=== PATIENT | male | born 2005 | race African-American/Black ===

== ENCOUNTER 2024-07-23 09:59 | Emergency (ER) | payer OTHER, SELFPAY ==
--- NOTE | ~2024-07-23 | XR_ITS ---
EXAMINATION: XR HAND/WRIST, RIGHT CLINICAL INFORMATION: Pain following a punching injury. COMPARISON: None available. TECHNIQUE: PA, oblique, lateral, and scaphoid views of the right hand and wrist. FINDINGS: No fracture or dislocation. Normal carpal alignment. No significant joint space narrowing or marginal osteophytes. No osseous erosion. No periarticular osteopenia. No abnormal soft tissue calcification. XR/XR hand wrist RT IMPRESSION: No acute osseous abnormality. Electronically signed by: Aric Jeronimo MD 07/23/2024 01:49 PM EDT
[2024-07-23 10:01] VITALS: BP 120/64; PULSE 95; RESP 16; TEMP 36.4; O2SAT 98; BMI 34.8
--- NOTE | 2024-07-23 11:09 | ED_ITS ---
HPI - Extremity Problem General Chief complaint: Extremity Injury, Upper Stated complaint: Hand injury Time Seen by Provider: 07/23/24 11:08 Source: patient Mode of arrival: ambulatory Limitations: no limitations History of Present Illness ED Provider: mally WALKER Narrative: Patient is a 19-year old right hand dominant male presenting to the ED with complaint of right hand and wrist pain. States that he was upset last night and punched a dumpster. Denies numbess or tingling, decreased ROM. Onset (ago): hour(s) Location: right Associated symptoms: denies other symptoms Related Data Allergies Allergy/AdvReac Type Severity Reaction Status Date / Time No Known Allergies Allergy Verified 07/23/24 10:06 Review of Systems Review of Systems: As per HPI. Yes all other systems are reviewed and are negative Constitutional: Constitutional: Reports as per HPI [facility] Social History Social History Advance Directives: No Advance Directives Information Provided: Yes Do you have a plan to hurt others: No Plan Physical Exam Vital Signs: Vital Signs: Last Vital Signs Temp 97.5 F 07/23/24 10:01 Pulse 95 07/23/24 10:01 Resp 16 07/23/24 10:01 BP 120/64 07/23/24 10:01 Pulse Ox 98 07/23/24 10:01 O2 Del Method Room Air 07/23/24 10:01 BMI result Body Mass Index 34.8 Vital signs have been reviewed and appear to be correct. Blood pressure normal. Heart rate normal. Respiratory rate normal. Temperature normal. Oxygen saturation normal. Const: General: cooperative, healthy appearing and no acute distress Orientation/consciousness: oriented to person, oriented to place, oriented to time and patient oriented x3 Limitations: no limitations HEENT: Head: Yes normocephalic and Yes atraumatic Ears: external ears normal General nose exam: Normal external nose present Face and sinus: Yes face symmetric Mouth: oropharynx normal and moist mucous membranes Throat: Yes uvula midline Eyes: Pupils: Equal, round and reactive pupils present Neck: Neck: Yes normal visual inspection and Yes supple Resp: Effort & Inspection: normal respiratory effort and able to speak in complete sentences Auscultation: clear to auscultation bilaterally Cardio: Rate: regular rate Rhythm: regular rhythm Heart sounds: S1 normal heart sound present and S2 normal heart sound present Skin: General skin exam: elasticity normal and turgor normal Neuro: General: oriented to person, oriented to place, oriented to time, patient oriented x3, moves all extremities, no focal motor deficits and CN's II- XI intact bilaterally Cranial nerves: Yes Equal, round and reactive pupils present Cognition (Neuro): normal cognition Extrem: General: Yes full ROM, Yes no pedal edema and Yes no calf tenderness Right upper extremity: wrist Details: normal to inspection, normal ROM, normal vascular exam and radial pulse present; no tenderness and no swelling and Extremity exam: right hand Details: normal to inspection, normal capillary refill, neuromotor exam normal, neurosensory exam normal and normal ROM of fingers; no tenderness and no ecchymosis Psych: Mental Status: mental status grossly normal Affect: normal affect Thought process: Normal thought process present Medications Administered Discontinued Medications Generic Name Dose Route Start Last Admin Trade Name Freq PRN Reason Stop Dose Admin Acetaminophen 975 mg 07/23/24 11:10 07/23/24 11:24 Acetaminophen 325 Mg Tablet PO 07/23/24 11:11 975 mg ONCE ONE Administration Ibuprofen 600 mg 07/23/24 11:10 07/23/24 11:23 Ibuprofen 600 Mg Tablet PO 07/23/24 11:11 600 mg ONCE ONE Administration Medical Decision Making Medical Decision Making [facility] Narrative: Patient is a 19-year old right hand dominant male presenting to the ED with complaint of right hand and wrist pain. On exam patient is awake, A+Ox3, VS WNL, afebrile, normal neurological exam without focal deficits, physical exam findings as above. Given reported symptoms and physical exam findings, initial differential includes contusion, fracture, dislocation. X-ray notable for no acute fractures. My interpretation is in agreement with the radiologist's interpretation. Patient provided with elieser wrap, advised ice, tylenol, ibuprofen. Return precautions discussed. Patient verbalized understanding of and agreement with plan. Differential Diagnosis Differential Diagnoses: The differential diagnosis associated with the presentation includes As per MDM Independent Interpretation I performed an independent interpretation of an: Plain X-Ray Interpretation: No acute fracture right-hand Radiology Impression Discussion of test interpretation with radiology: I have reviewed the radiologist's reading. Radiologist Impression: XR/XR hand wrist RT IMPRESSION: No acute osseous abnormality. External Record Review External record reviewed: Inpatient record, Office record and Outpatient record Discharge Plan Discharge Clinical Impression: Contusion of hand Patient Disposition: Home, Self-Care Instructions: Contusion in Adults (ED), How to Use an Elastic Bandage (ED) Additional Instructions: You have been evaluated in the emergency department today for pain. Your evaluation did not find evidence of medical conditions requiring emergent intervention at this time. We have provided an ELIESER wrap for you to use while your heals. Please rest, ice, and elevate your hand, and resume normal activities as tolerated. We recommend you take 600mg ibuprofen every 6 hours or 650mg Tylenol every 6 hours as needed for pain. If Needed you can alternate these medications as they take 1 medication every 3 hours. For instance at noon take ibuprofen, then at 3:00 p.m. take Tylenol, then at 6:00 p.m. take ibuprofen. Please schedule an appointment for follow-up with your primary care provider this week. Return to the emergency department if you experience worsening pain, numbness, tingling, change of color in your fingers, or any o ther concerning symptoms. Print Language: Syrian
[2024-07-23] MEDS: Ibuprofen 600 MG TABLET PO (11:23)
[2024-07-23] MEDS: Acetaminophen 325 MG TABLET 975 MG PO (11:24)
[2024-07-23 14:25] VITALS: BP 120/64; PULSE 95; RESP 16; TEMP 36.4; O2SAT 98
== END 2024-07-23 14:27 | disposition home or self-care (01) ==
PROVIDERS: Emergency Provider Emergency Medicine
DX: S60.221A Contusion of right hand, initial encounter (principal); W22.09XA Striking against other stationary object, initial encounter; Y93.89 Activity, other specified; Y92.9 Unspecified place or not applicable; Y99.9 Unspecified external cause status; M79.641 Pain in right hand
CPT/HCPCS: 73110; 73130; 99283

== ENCOUNTER 2025-01-10 08:01 | Emergency (ER) | payer OTHER, MEDICAID, SELFPAY ==
--- NOTE | ~2025-01-10 | XR_ITS ---
EXAMINATION: XR ANKLE, RIGHT CLINICAL INFORMATION: pain/twisted ankle COMPARISON: None available. TECHNIQUE: AP, lateral, and mortise views of the right ankle. FINDINGS: No acute cortical disruption or malalignment. Joint effusion, anterior tibiotarsal bursa. Edema pattern/soft tissue contusion involving mostly the lateral malleolus. No subcutaneous emphysema. XR/XR ankle RT min 3V IMPRESSION: Joint effusion, anterior tibiotarsal bursa. Internal derangement cannot be excluded. Electronically signed by: Jamison Valles MD 01/10/2025 08:34 AM EDT
[2025-01-10 08:05] VITALS: BP 111/78; PULSE 102; RESP 16; TEMP 36.3; O2SAT 99; BMI 31.9
--- NOTE | 2025-01-10 08:39 | PC.NURSE ---
Patient reports was going down the stairs yesterday and right ankle turned inward causing him to have his body weight go into right ankle. Denies falling was able to catch himself. Has been ambulating on ankle but with pain. Denies numbness or tingling, is able to wiggle toes. Lateral side of ankle with swelling, ice pack applied
--- NOTE | 2025-01-10 09:07 | ED.GENADULT ---
HPI - General Adult General Chief complaint: Extremity Injury, Lower Stated complaint: twisted ankle Time Seen by Provider: 01/10/25 08:26 Source: patient Mode of arrival: ambulatory Limitations: no limitations History of Present Illness HPI narrative: This is an otherwise healthy 19-year-old man who presents for evaluation of right ankle injury. The patient reports that while he was walking up the stairs he missed a step and accidentally rolled his ankle inwards. The patient reports having pain on the outside of his right ankle. He states no paresthesias. He states no toe pain leg pain or ankle pain. He states no head injury. Related Data Allergies Allergy/AdvReac Type Severity Reaction Status Date / Time No Known Allergies Allergy Verified 01/10/25 08:06 Review of Systems Review of Systems: ROS as per [facility] Social History Social History Alcohol intake: never Smoked in Last 30 Days: No Use of substances other than those prescribed or required for medical reasons: No Advance Directives: No Advance Directives Information Provided: No Physical Exam ED Vital Signs: Vital Signs - 24 hr 01/10/25 08:05 Temperature 97.4 F Pulse Rate 102 H Respiratory Rate 16 Blood Pressure 111/78 Pulse Oximetry 99 Oxygen Delivery Method Room Air BMI result Body Mass Index 31.9 Gen: NAD, AOx3 HEENT: NCAT, EOMI, normal conjunctiva CV: RRR , 2+ DP/PT pulses bilaterally Pulm: CTAB, no increased work of breathing GI: Soft, NTND, no rebound, guarding or rigidity MSK: Bilateral lower extremity compartments are soft with intact overlying skin, point tenderness to the right anterior talofibular ligament with associated edema, no tenderness to palpation of the posterior 1/3 tip of the lateral or medial right malleoli, no tenderness to palpation at the base of the right 5th metatarsal or navicular, no ecchymosis of the right foot sole /dorsum, no right midfoot point tenderness, no tender to palpation to the right leg Neuro: Grossly non focal, sensation intact to light touch in bilateral lower extremity dermatomes L3-S2 Medical Decision Making Medical Decision Making MDM Narrative: Differential diagnosis includes, but is not limited to strain, sprain, fracture. Patient is afebrile and hemodynamically stable on room air. Exam is benign and reassuring. The affected right lower extremities neurovascularly intact. I reviewed diagnostic imaging as below. Patient was treated supportively with 600 mg p.o. ibuprofen. The patient is provided ankle stirrup and crutches. On re-examination, patient is well-appearing and in no acute distress. There is no indication for further emergent evaluation in this otherwise well-appearing patient as above. Patient is provided written and verbal instructions, educational materials, Orthopedic surgery referral, recommendations for outpatient follow-up, strict return precautions and teach back is performed. Patient states understanding and agreement with plan of care. Patient is discharged home in stable and improved condition. Admission/Observation Consideration of admission/observation: Escalation of care including admission/observation considered Independent Interpretation I performed an independent interpretation of an: Plain X-Ray Interpretation: Per my interpretation, x-ray of the right ankle demonstrates no acute fracture or dislocation Radiology Impression Discussion of test interpretation with radiology: I discussed test interpretation with the radiologist and I have reviewed the radiologist's reading. Radiologist Impression: I discussed with radiologist, Dr. Valles, via [employer], who states there may be ligamentous injury and that is what is meant by internal deranagement cannot be excluded XR/XR ankle RT min 3V IMPRESSION: Joint effusion, anterior tibiotarsal bursa. Internal derangement cannot be excluded. Electronically signed by: Jamison Valles MD 01/10/2025 08:34 AM EDT Dictated By: Jamison Knapp MD Signed By: <Electronically signed by Jamison Baltazar MD in OV> 01/10/25 0834 Discharge Plan Discharge Clinical Impression: Ankle sprain and strain Patient Disposition: Home, Self-Care Instructions: Ankle Sprain (ED) Additional Instructions: You were seen and evaluated in the emergency room for right ankle injury. Your x-rays showed no broken or dislocated bones. You were given an ankle stirrup splint. Please continue using until you follow up with Orthopedic surgery. Please follow up with Orthopedic surgery, Dr. Mazariegos, in 1-2 weeks for re-evaluation. Please elevate your ankle above the level of your heart as much as possible. Please ice 20 minutes on at a time with 20 minutes breaks in between. Please repeat 3 times in a row. You may repeat this entire cycle several times a day. Please be sure to protect her skin when icing. Return to the emergency room with any new concerns or symptoms. Referrals: Rich Mazariegos MD [Physician] - Print Language: Vincentian
[2025-01-10] MEDS: Ibuprofen 600 MG TABLET PO (09:43)
== END 2025-01-10 10:19 | disposition home or self-care (01) ==
PROVIDERS: Emergency Provider Emergency Medicine
DX: S93.401A Sprain of unspecified ligament of right ankle, initial encounter (principal); S96.911A Strain of unspecified muscle and tendon at ankle and foot level, right foot, initial encounter; W10.8XXA Fall (on) (from) other stairs and steps, initial encounter; M25.571 Pain in right ankle and joints of right foot; Y93.89 Activity, other specified; Y92.9 Unspecified place or not applicable; Y99.9 Unspecified external cause status
CPT/HCPCS: 29515; 73610; 99283; 99284

== ENCOUNTER → 2025-01-10 08:20 | Outpatient (BNV) | payer OTHER, MEDICAID, SELFPAY | PROVIDERS: Emergency Provider Emergency Medicine; Visit Provider Radiology Diagnostic Radiology | DX: M25.571 Pain in right ankle and joints of right foot (principal); M25.471 Effusion, right ankle | CPT/HCPCS: 73610 ==